=== PATIENT | female | born 1960 | race Caucasian/White ===

== ENCOUNTER 2017-05-14 10:31 | Day surgery (SDC) | payer BC ==
[2017-05-11 18:01] VITALS: BMI 29.2
[2017-05-14] MEDS ORDERED: PROPOFOL 20 ML ONE ×2 (10:40)
[2017-05-14 12:40] VITALS: TEMP 97.8
[2017-05-14 13:08] VITALS: BP 110/48; PULSE 58
== END 2017-05-14 13:20 | disposition home or self-care (01) ==
LOC: FASU-ENDO 10:31
PROVIDERS: ATTEND Internal Medicine Gastroenterology
PROC: 0DJD8ZZ Inspection of Lower Intestinal Tract, Via Natural or Artificial Opening Endoscopic (ICD-10-PCS; principal; 2017-05-14 12:15)
DX: Z12.11 Encounter for screening for malignant neoplasm of colon (principal); Z80.0 Family history of malignant neoplasm of digestive organs; Z83.71 Family history of colonic polyps
CPT/HCPCS: 84703